=== PATIENT | female | born 1975 | race Hispanic/Latino ===

== ENCOUNTER 2021-08-10 06:02 | Day surgery (SDC) | payer OTHER ==
[2021-08-09 09:33] VITALS: BP 119/78
[2021-08-10] VITALS (16 sets, daily range): BP systolic 100–140; BP diastolic 54–87
[~2021-08-10] VITALS: Ht 149.9 cm; Wt 63.3 kg
[~2021-08-10 06:02] MED LIST: LEVO125C4 PO
[2021-08-10] MEDS ORDERED: LACTATED RINGERS 1000ML 1,000 ML IV ONE (07:07)
[2021-08-10] MEDS ORDERED: SUCCINYLCHOLINE CHLORIDE 20 MG/ML 10 ML VIAL ONE (07:48)
[2021-08-10] MEDS ORDERED: FENTANYL CITRATE PF 50 MCG/1 ML 2ML VIAL ONE (07:48)
[2021-08-10] MEDS ORDERED: LIDOCAINE PF 100MG/5ML (2%) SYRINGE 5ML ONE (07:48)
[2021-08-10] MEDS ORDERED: PROPOFOL 10 MG/ML 20ML VIAL IV ONE (07:48)
[2021-08-10] MEDS ORDERED: OXYMETAZOLINE HCL SPRAY 15 ML BOTTLE ONE (07:49)
[2021-08-10] MEDS ORDERED: ROCURONIUM 10MG/1ML SYR 10 MG/ML ML ONE (07:49)
[2021-08-10] MEDS ORDERED: LIDOCAINE 1%-EPI 1:100,000 20 ML VIAL IJ ONE ×2 (07:49→08:10)
[2021-08-10] MEDS ORDERED: MIDAZOLAM HCL 1 MG/ML 2ML VIAL ONE (07:49)
[2021-08-10] MEDS ORDERED: CEFTRIAXONE 1G VIAL ONE (08:01)
[2021-08-10] MEDS ORDERED: CEFTRIAXONE 1G VIAL IVP ONE (08:01)
[2021-08-10] MEDS ORDERED: GLYCOPYRROLATE 1 MG/5 ML SYRINGE ONE (08:14)
[2021-08-10] MEDS ORDERED: NEOSTIGMINE 5MG/5ML SYR IV ONE (08:15)
[2021-08-10] MEDS ORDERED: MEPERIDINE-PF 25 MG/ML SYG ONE (08:37)
== END 2021-08-10 11:07 | disposition home or self-care (01) ==
LOC: DAH 06:02
PROVIDERS: ATTEND Otolaryngology
DX: J34.2 Deviated nasal septum (principal); R04.0 Epistaxis; E66.9 Obesity, unspecified; Z68.28 Body mass index [BMI] 28.0-28.9, adult; Z20.822 Contact with and (suspected) exposure to COVID-19; Z72.89 Other problems related to lifestyle; Z79.899 Other long term (current) drug therapy
CPT/HCPCS: 30520; 87635; A4215; A4221; A4222; A4223; A4606; A4663; A6260; C9803; J0330; J0696 ×2; J2001; J2175; J2250; J2704; J2710; J3010; J3490 ×3; J7120